=== PATIENT | female | born 1985 | race African-American/Black ===

== ENCOUNTER 2023-08-31 17:28 | Emergency (ER) | payer OTHER ==
[2023-08-31 18:07] VITALS: BP 132/89; PULSE 70; RESP 16; TEMP 98.3; BMI 30.9
[2023-08-31] MEDS ORDERED: ACETAMINOPHEN 325 MG TABLET (FP) ONE (18:45)
[2023-08-31] MEDS: ACETAMINOPHEN 325 MG TABLET (FP) PO ONE (18:47)
== END 2023-08-31 19:08 | disposition home or self-care (01) ==
LOC: FER 17:28
DX: R51.9 Headache, unspecified (principal); R05.9 Cough, unspecified
CPT/HCPCS: 99283-25

== ENCOUNTER 2024-02-28 14:14 | Emergency (ER) | payer OTHER ==
[2024-02-28 14:19] VITALS: BP 137/92; PULSE 99; RESP 18; TEMP 98.1; BMI 30.9
[2024-02-28] MEDS ORDERED: METHOCARBAMOL 500 MG TABLET ONE (14:55)
[2024-02-28] MEDS ORDERED: LIDOCAINE 5% TOPICAL PATCH ONE (14:55)
[2024-02-28] MEDS ORDERED: KETOROLAC TROMETHAMINE 30 MG/1 ML VIAL ONE (14:55)
[2024-02-28] MEDS: KETOROLAC TROMETHAMINE 30 MG/1 ML VIAL IM ONE (15:03)
[2024-02-28] MEDS: LIDOCAINE 5% TOPICAL PATCH TP ONE (15:04)
[2024-02-28] MEDS: METHOCARBAMOL 500 MG TABLET PO ONE (15:04)
[2024-02-28] MEDS ORDERED: LIDOCAINE PATCH REMOVAL MC SCH (22:00)
== END 2024-02-28 16:30 | disposition home or self-care (01) ==
LOC: FER 14:14
PROC: 3E0233Z Introduction of Anti-inflammatory into Muscle, Percutaneous Approach (ICD-10-PCS; principal; 2024-02-28)
DX: M54.2 Cervicalgia (principal); M54.50 Low back pain, unspecified; G89.29 Other chronic pain; R20.0 Anesthesia of skin
CPT/HCPCS: 99284-25